=== PATIENT | female | born 1955 | race Caucasian/White ===

== ENCOUNTER 2016-10-11 07:57 | Observation (INO) | payer BC ==
[2016-10-10 14:08] LABS: BASOPHILS 1.3 %; BASOPHILS ABSOLUTE 0.09 10/3/uL (0.0-0.16); EOSINOPHILS 0.9 %; EOSINOPHILS ABSOLUTE 0.06 10/3/uL (0.0-0.53); HEMATOCRIT 37.9 % (36.0-48.0); HEMOGLOBIN 13.1 g/dL (12.0-16.0); IMMATURE GRANULOCYTES 0.3 %; IMMATURE GRANULOCYTES ABSOLUTE 0.02 10/3/uL (0.0-0.11); LYMPHOCYTES 32.6 %; LYMPHOCYTES ABSOLUTE 2.27 10/3/uL (0.67-4.30); MEAN CORPUS HGB CONC 34.6 g/dL (32.0-36.0); MEAN CORPUSCULAR HEMOGLOB 32.8 pg (26.0-34.0); MEAN PLATELET VOLUME 10.8 fL (9.2-13.0); MONOCYTES 4.7 %; MONOCYTES ABSOLUTE 0.33 10/3/uL (0.21-1.20); NEUTROPHILS 60.2 %; RBC DISTRIBUTION WIDTH 13.4 % (12.0-16.0); RED CELL COUNT 3.99 10/6/uL (4.0-5.6)
[2016-10-10 14:10] LABS: MANUAL DIFF NO %; PLATELET COUNT 268 10/3/uL (150-400)
[2016-10-10 14:38] LABS: A/G RATIO 1.4 (0.7-1.9); ALBUMIN 3.7 G/DL (3.5-5.0); ALKALINE PHOSPHATASE 40 U/L (45-117); BUN (BLOOD UREA NITROGEN) 15 MG/DL (6-23); CALCIUM, SERUM 9.3 MG/DL (8.5-10.4); CHLORIDE, SERUM 107 MMOL/L (96-112); CO2 (CARBON DIOXIDE) 28 MMOL/L (24-34); CREATININE 0.95 MG/DL (0.55-1.02); GFR AFRICAN AMERICAN 75 ML/MIN (>=60); GFR NON AFRICAN AMERICAN 65 ML/MIN (>=60); GLOBULIN 2.6 G/DL (2.5-4.1); GLUCOSE, SERUM 81 MG/DL (60-99); SGOT(AST) 16 U/L (5-40); SGPT(ALT) 29 U/L (5-65); SODIUM, SERUM 144 MMOL/L (135-148); TOTAL BILIRUBIN 0.4 MG/DL (0-1.2); TOTAL PROTEIN 6.3 G/DL (6.0-8.5)
--- NOTE | ~2016-10-11 | OP ---
Record Of Operation [facility] [address] [place]. [address] NAME: TRACIE YUN : 57 STATUS : ADM Gama PAT#: [id number] AGE: 61 ADM/REG DATE : 10/11/16 MR#: [id number] REPORT SERV DATE: 10/11/16 DICTATED BY: KARLY MARTINEZ DATE: 10/11/16 REPORT STATUS : Draft TRANSCRIBED BY: KARAN DATE: 10/11/16 DATE OF PROCEDURE: 10/11/2016 PREOPERATIVE DIAGNOSIS: Left breast HER2 positive breast cancer status post neoadjuvant chemotherapy. POSTOPERATIVE DIAGNOSIS: Left breast HER2 positive breast cancer status post neoadjuvant chemotherapy. PROCEDURE: 1. Bilateral skin-sparing mastectomy. 2. Left axillary sentinel lymph node biopsy. INDICATION FOR THE PROCEDURE: Ms Yun is a very pleasant, 61-year-old female, who presented with a 9-mm nodule at the 1 o'clock position areolar edge. This lesion was biopsied in my office under ultrasound guidance showing a grade 3, fairly aggressive invasive ductal cancer with HER2 positivity. The patient has completed neoadjuvant chemotherapy and is ready for surgical intervention. During her chemotherapy treatments, she was tested genetically and known to have a BRCA mutation. I have recommended bilateral skin-sparing mastectomy to the patient to reduce her risk of future malignancy. The patient has also met with Dr. Bourgeois and plans, I believe, are for a total hysterectomy at the time of her 2nd reconstructive surgery. The patient presented for lymphoscintigraphy scan yesterday showing good uptake in a single lymph node in the left axilla. On the patient's preoperative chest x-ray, there was some concern of a lesion at the base of the left lung. This was not noted on her chest x-ray at port placement three months ago. I have reviewed that chest x-ray and she will of course need a chest CT scan for full evaluation of the area. I did speak with the radiologist who read this chest x-ray, and he does note that it could be something more superficial than lung cavity, something in the breast, or possibly something in the lung itself. I decided not to delay the patient's case for this small lesion but it will be worked up postoperatively. Likely, we will get CT scan in medical oncologist's office some time postoperatively in the coming weeks. OPERATIVE FINDINGS: After appropriate consent was noted on the chart, the patient was taken to the operating room in supine position. She was placed under general anesthesia without any complications. The bilateral chest wall was prepped and draped in sterile fashion. Good uptake was noted with the gamma probe and methylene blue was not utilized. The patient had been marked prior to surgery by Dr. Dukes's team. A circum-vertical incision will be utilized. An incision was made on the left side with a #15 blade. Sharp dissection was carried down to the level of breast parenchyma with plasma blade. Plasma blade was then utilized to create flaps down to the extent of the breast parenchyma in all directions. Dissection was carried down to the pectoralis major fascia, which was removed from the muscle with the breast intact. The breast was divided from the axillary fat pad at the axillary tail, marked with a suture in the axillary tail and sent for permanent pathology. No obvious tumor was noted in the specimen. The left axillary sentinel node biopsy was performed in regular fashion. Gamma probe was utilized to note an uptake in the axillary Record Of [address] [address] NAME: TRACIE YUN : 57 STATUS : ADM aGma PAT#: [id number] AGE: 61 ADM/REG DATE : 10/11/16 MR#: [id number] REPORT SERV DATE: 10/11/16 DICTATED BY: KARLY MARTINEZ DATE: 10/11/16 REPORT STATUS : Draft TRANSCRIBED BY: MODL DATE: 10/11/16 fat pad. A lymph node was grasped and excised, it's ex vivo count was over 2200. No additional count was noted in the axilla once this lymph node had been removed. The lymph node was somewhat firm but overall fairly normal. This was sent for pathologic review immediately. Frozen section showed no obvious malignancy. No additional lymph nodes were taken. The wound was copiously irrigated with warm saline and a wet lap sponge placed. The right breast mastectomy was performed in similar fashion. An incision was made in a circum- vertical manner with a #15 blade. Sharp dissection was carried down to the breast parenchyma with plasma blade. Plasma blade was then utilized to create flaps in all directions to the extent of the breast parenchyma down to the level of pectoralis major fascia. The pectoralis fascia was taken off the muscle with the breast intact. The breast divided from the axillary fat pad and the axillary tail. The right breast was marked with a suture in the axillary tail and sent for permanent pathology. The wound was copiously irrigated with warm saline. Hemostasis achieved. A wet lap sponge was placed. At the end of my portion of the case, all counts were correct. ESTIMATED BLOOD LOSS: 50 mL. COMPLICATIONS: None. SPECIMEN: Bilateral breast and left axillary sentinel lymph node. Please see Dr. Hunter's note for further details on his portion of the case. JADA/KARAN Karly Martinez MD / [id number] CC: MD Paola Zaman M.D. Stephen Depasquale, M.D. Mark Brzezienski, M.D. [facility] Gary Green III, M.D.
--- NOTE | ~2016-10-11 | OP ---
Record Of Operation [facility] [address] [place]. [address] NAME: TRACIE PADRON : 57 STATUS : DIS Gama PAT#: [id number] AGE: 61 ADM/REG DATE : 10/11/16 MR#: [id number] REPORT SERV DATE: 10/14/16 DICTATED BY: NING DUKES DATE: 10/12/16 REPORT STATUS : Draft TRANSCRIBED BY: MODDeepika DATE: 10/12/16 DATE OF PROCEDURE: 10/11/2016 PREOPERATIVE DIAGNOSIS: Surgical absence of the breast. POSTOPERATIVE DIAGNOSIS: Surgical absence of the breast. PROCEDURE: Bilateral tissue expansion and acellular dermal matrix reconstruction of circum- vertical mastectomy. INDICATIONS AND FINDINGS OF THE PROCEDURE: This 61-year-old female presents with anticipated circum-vertical mastectomy bilaterally in the management of breast cancer. She is appropriate for the above-described operative intervention. PROCEDURE: The patient was brought to the operating table after bilateral circum-vertical mastectomies. Our attention was initially turned to the right breast. The pectoralis muscle was released. An appropriately reconstituted large contour perforated sheet of acellular dermal matrix was then sewn to the cut edge of the pectoralis muscle. The purpose of the acellular dermal matrix was to supplement the soft tissue envelope, stabilize the position of the tissue machine helper, and recreate the inframammary crease. With this noted, then a 600 mL tissue machine helper was prepped and placed behind the muscle AlloDerm construct. The AlloDerm was sewn tightly around its edge, and the implant was tab-fixed to the chest wall. She was then filled to 350. She was rechecked for hemostasis. A ropivacaine block was carried out, and inferior drains were placed. She was then closed in a progressive tension fashion with multiple layers of 3-0 PDS and Monocryl through to an intracuticular in the skin. Contralaterally, an identical procedure was carried out. The pectoralis muscle was elevated and identical sheet of acellular dermal matrix was then used to an identical purpose. An identical tissue machine helper was then used and fixed identically. The implant was filled to 300. Inferior drains were then placed. She was thoroughly irrigated with Hibiclens solution, blocked with ropivacaine, and then closed in a progressive tension fashion with multiple layers of PDS and Monocryl through to an intracuticular in the skin. She was cleansed with peroxide. Nitroglycerin paste dry dressings were placed, and she was remanded to the recovery room in stable condition. All sponge and needle counts were correct. SAVANA/KARAN Ning Dukes M.D. / [id number] CC: Chhaya Galindo MD Record Of [address] [address] NAME: TRACIE PADRON : 57 STATUS : DIS Gama PAT#: [id number] AGE: 61 ADM/REG DATE : 10/11/16 MR#: [id number] REPORT SERV DATE: 10/14/16 DICTATED BY: NING DUKES DATE: 10/12/16 REPORT STATUS : Draft TRANSCRIBED BY: KARAN DATE: 10/12/16 Paola Badillo M.D.
[~2016-10-11 07:57] MED LIST: ALLEGRA180 PO; FISH-EPA1000 MG PO; MULTIPLE VIT PO; PVC V; VITAMIN D1000 UNI1 PO; VITAMINS & HERBS; X5 PO
[2016-10-11 08:21] LABS: INTERNATIONAL NORMAL RATI 1.1 UNITS (-); PARTIAL THROMBO TIME 29.8 SEC (22.5-37.2); PROTIME (NOT ORD) 14.1 SEC (12.0-14.5)
[2016-10-12] MEDS ORDERED: ALEVE220 MG PO (10:03)
[2016-10-12] MEDS ORDERED: MOMUD PO (10:04)
[2016-10-12] MEDS ORDERED: AT25 PO (10:05)
[2016-10-12] MEDS ORDERED: PERCOCET 7.5/321 TAB PO (10:06)
[2016-10-12] MEDS ORDERED: K500 PO (10:06)
[2016-11-27] MEDS ORDERED: SYNTHROID137 MCG PO (19:08)
[2016-11-27] MEDS ORDERED: SYN.15 PO (19:09)
[2016-11-27] MEDS ORDERED: ZYRTEC ALLGY10 MG PO (19:10)
[2016-11-27] MEDS ORDERED: HERCEPTIN440 MG IV (19:11)
[2016-11-27] MEDS ORDERED: ACET500CAP PO (19:11)
== END 2016-10-12 11:18 | disposition home or self-care (01) ==
LOC: SDC 07:57 → 4EA 13:43
PROVIDERS: Surgery Surgery of the Hand; Surgery Surgical Oncology
PROC: 0HTV0ZZ Resection of Bilateral Breast, Open Approach (ICD-10-PCS; 2016-10-11)
PROC: 07B60ZX Excision of Left Axillary Lymphatic, Open Approach, Diagnostic (ICD-10-PCS; 2016-10-11)
PROC: 0HHV0NZ Insertion of Tissue Expander into Bilateral Breast, Open Approach (ICD-10-PCS; principal; 2016-10-11 09:15)
PROC: 0HHV0NZ Insertion of Tissue Expander into Bilateral Breast, Open Approach (ICD-10-PCS; 2016-10-11 09:15)
DX: C50.912 Malignant neoplasm of unspecified site of left female breast (principal); E03.9 Hypothyroidism, unspecified; Z85.3 Personal history of malignant neoplasm of breast; Z90.89 Acquired absence of other organs; Z87.442 Personal history of urinary calculi; Z88.8 Allergy status to other drugs, medicaments and biological substances; Z91.040 Latex allergy status
CPT/HCPCS: 71020; 78195; 80053; 85025; 85576; 85610; 85730; 88307; 88331; 88342; 93005; 96374; 96375; 96376; A9270-GY; A9541; C1789; G0378; J0690; J1885; J2250; J2270; J2405; J2550; J2710; J2795; J3010; Q4116